=== PATIENT | male | born 2005 | race Caucasian/White ===

== ENCOUNTER 2023-03-15 20:30 | Emergency (ER) | payer MEDICAID ==
[2023-03-15 21:45] LABS: BASOPHILS # (AUTO) 0.1 10^3/uL (0.0-0.1); BASOPHILS % (AUTO) 0.4 %; EOSINOPHILS # (AUTO) 0.1 10^3/uL (0.0-0.7); EOSINOPHILS % (AUTO) 0.4 %; HCT - HEMATOCRIT 47.3 % (42.0-52.0); HGB - HEMOGLOBIN 15.7 g/dL (14.0-18.0); LYMPHOCYTES # (AUTO) 1.4 10^3/uL (1.5-3.5); LYMPHOCYTES % (AUTO) 9.8 %; MEAN CORPUSCULAR HEMOGLOBIN 29.8 pg (27.0-31.0); MEAN CORPUSCULAR HGB CONC 33.2 g/dL (32.0-36.0); MEAN CORPUSCULAR VOLUME 89.8 fL (80.0-94.0); MONOCYTES # (AUTO) 1.4 10^3/uL (0.0-1.0); MONOCYTES % (AUTO) 9.9 %; NEUTROPHILS # (AUTO) 11.3 10^3/uL (1.5-6.6); NEUTROPHILS % (AUTO) 79.1 %; PLT - PLATELET COUNT 265 10^3/uL (130-450); RED BLOOD COUNT 5.27 10^6/uL (4.70-6.10); RED CELL DISTRIBUTION WIDTH 12.9 % (12.0-15.0); WHITE BLOOD COUNT 14.2 x10^3/uL (4.8-10.8)
[2023-03-15 21:58] LABS: CALCIUM 8.8 mg/dL (8.5-10.3); CREATININE 0.9 mg/dL (0.6-1.2); POTASSIUM 3.5 mmol/L (3.5-5.0)
[2023-03-15] MEDS: iohexoL-300 100 ML VIAL IVP ONE (22:31)
[2023-03-15] MEDS: HYDROcod/ACETAM 5/325 MG TABLET PO STA (23:12)
[2023-03-15 23:15] VITALS: O2SAT 96
--- NOTE | 2023-03-16 00:25 | CT Report ---
PROCEDURE: IAC'S W INDICATIONS: R ear purulent drain 2 months, mastoid tend CONTRAST: Omni 300 100ml TECHNIQUE: Noncontrast 0.6 mm thick direct axial and coronal sections acquired through each temporal bone separa tely. After the administration of intravenous contrast, 0.6 mm thick direct axial and coronal sectio ns acquired through the affected temporal bone. For radiation dose reduction, the following was used : automated exposure control, adjustment of mA and/or kV according to patient size. COMPARISON: None. FINDINGS: Image quality: Excellent. RIGHT: External auditory canal: There is diffuse fluid opacification of the external auditory canal. Middle ear: There is diffuse abnormal fluid or soft tissue throughout the middle ear. A few small fo ci of gas are demonstrated within the external artery canal or middle ear. The ossicles appear preser steven. Inner ear: Inner ear is normally formed and appears unremarkable. Facial nerve appears normal throu ghout its course. Mastoids: There is diffuse fluid opacification of the right mastoid air cells. LEFT: External auditory canal: The left external auditory canal is clear. Middle ear: Middle ear structures, including the ossicles and tympanic membrane, appear normal. No abnormal fluid or soft tissues within the middle ear cavity. Inner ear: Inner ear is normally formed and appears unremarkable. Facial nerve appears normal throu ghout its course. Mastoids: Mastoid air cells are clear. MISCELLANEOUS: Visualized intracranial structures, including the cerebellopontine angle cisterns, ap pear normal. Visualized facial structures demonstrate relative symmetry of the lymph nodes. IMPRESSION: 1. Diffuse abnormal fluid density within the right external auditory canal and middle ear likely repr esent infection, given clinical history. No definite bony erosions. No erosion of the ossicles. 2. Fluid opacification of the right mastoid air cells compatible with mastoiditis. 3. Visualized soft tissues demonstrate no discrete soft tissue abscess. Reviewed by: Carl Humphrey MD on 03/16/2023 12:24 AM PDT Approved by: Carl Humphrey MD on 03/16/2023 12:24 AM PDT Station ID: [id number]
[2023-03-16 01:18] VITALS: BP 139/77
[2023-03-16] MEDS: IBUPROFEN 600 MG TABLET PO STA (01:22)
--- NOTE | 2023-03-16 01:47 | ED Physician Documentation ---
History of Present Illness - Stated complaint Stated Complaint: HEADACHE,EAR PX - Chief complaint Chief Complaint: General - History obtained from History obtained from: Patient, Family - Additonal information Additional information: The patient comes to the emergency department chief complaint of right ear drainage and headache. He states that the drainage actually started a couple of months ago after having a cerumen disimpaction on that side. He states that during the procedure, which was performed at a [place] urgent care facility, he noticed quite a bit of pain in the ear. It was shortly after that the drainage began, and the patient wondered if his tympanic membrane had been perforated. The patient states that after dealing with the drainage steadily worsening over a week, he went back in and was told that he had otitis externa. He was placed on eardrops for this but they did not clear up the drainage. Patient went back again and this time was placed on an oral antibiotic, though he does not know which one it was. He states he took the full course of that and finished it about 2 weeks ago and it did seem to help somewhat; however, he noticed recurrence of the drainage a little over a week ago and states that it has just gotten worse and worse since then. He now has pain that reaches up that side of his head from the ear. He has not noticed any dizziness or swelli ng. No bleeding. No fevers. He states his hearing is somewhat decreased about ear. He denies any immersion since being started on the antibiotic drops after the cerumen disimpaction. No other complaints at this time. PD PAST MEDICAL HISTORY - Present Medications Home Medications: Ambulatory Orders Medication Instructions Recorded Confirmed Ciprofloxacin HCl/Dexameth 7.5 ml OT BID 14 Days #210 ml 03/16/23 [Ciprodex Otic Suspension] Ciprofloxacin [Cipro] 500 mg PO Q12H 14 Days #56 tablet 03/16/23 HYDROcod/ACETAM 5/325 [Young 5/325] 1 - 2 tablet PO Q6H PRN #14 tablet 03/16/23 - Allergies Allergies/Adverse Reactions: Allergies Allergy/AdvReac Type Severity Reaction Status Date / Time No Known Drug Allergies Allergy Verified 03/15/23 20:43 PD ED PE NORMAL - Vitals Vital signs reviewed: Yes - General General: Alert and oriented X 3, No acute distress, Well developed/nourished - HEENT HEENT: Atraumatic, PERRL, EOMI, Moist mucous membranes, Other (Left tympanic membrane clear. Right ear demonstrates steady trickling output of purulent/serous fluid. Tympanic membrane somewhat difficult to visualize but appears to have a perforation. Mild tenderness over mastoid without edema or erythema. No crepitus. External ear normal) - Neck Neck: Supple, no meningeal sign, No bony TTP, No adenopathy - Respiratory Respiratory: No respiratory distress - Derm Derm: Normal color, Warm and dry, No rash - Extremities Extremities: No deformity - Neuro Neuro: Alert and oriented X 3 - Psych Psych: Normal mood, Normal affect Results - Vitals Vitals: Vital Signs - 24 hr 03/15/23 03/15/23 03/16/23 20:38 23:06 01:00 Temperature 37.2 C Heart Rate 94 91 70 Respiratory 16 16 16 Rate Blood Pressure 139/73 H 134/68 H 139/77 H O2 Saturation 97 96 96 03/16/23 01:43 Temperature 37.3 C Heart Rate Respiratory Rate Blood Pressure O2 Saturation Oxygen O2 Source Room air - Labs Labs: Microbiology 03/15/23 21:21 Body Fluid Culture - Preliminary Other - Drainage Laboratory Tests 03/15/23 03/15/23 21:41 21:41 WBC 14.2 H RBC 5.27 Hgb 15.7 Hct 47.3 MCV 89.8 MCH 29.8 MCHC 33.2 RDW 12.9 Plt Count 265 MPV 10.0 Neut # (Auto) 11.3 H Lymph # (Auto) 1.[address] [place] # (Auto) 1.4 H Eos # (Auto) 0.1 Baso # (Auto) 0.1 Absolute Nucleated RBC 0.00 Nucleated RBC % 0.0 Sodium 141 Potassium 3.5 Chloride 105 Carbon Dioxide 28 Anion Gap 8.0 BUN 13 Creatinine 0.9 Estimated GFR (MDRD) 109 Glucose 102 H Calcium 8.8 - Rads (name of study) CT IAC with contrast Relevant Findings:: Final report received, See rad report (Diffuse abnormal fluid density within right external and middle ear canals likely infection. No bony erosion. Fluid opacification of right mastoid air cells compatible with mastoiditis. No abscess.) PD Medical Decision Making - ED course Complexity details: reviewed results, re-evaluated patient, considered differential, d/w patient, d/w family ED course: I discussed with the patient that I was concerned about the possibility of chronic otitis that has spread into the patient's mastoid air cells, given the lack of response to antibiotics and the copious drainage patient has been having. Laboratory studies were obtained and demonstrated a white blood cell count of 14.2. BMP was unremarkable. The patient was afebrile in the emergency department. He was sent for CT of the internal auditory canals/mastoids with IV contrast, and this did show opacification of the mastoid air cells as well as nearly complete opacification of the external and internal auditory canals with fluid. I did speak with Dr. Huerta, the ENT specialist on-call at [facility], who did review the patient's CT images. He felt that the patient at this point, given the lack of bony erosion and is afebrile and overall well appearance, could be treated with oral Cipro and Ciprodex drops. He recommended a 2-week course of each. He stated he would like to have the patient seen in the ENT clinic there at [facility] Within the week to be sure the patient was responding appropriately and that there was no development of complications. The transfer center nurse Olive stated that she would put in a request for the clinic to call the patient, but did give me the number [phone], which is the otolaryngology clinic number that the patient should call if he has not heard from the clinic within the next 2 days. I have discussed all of this with the patient and his mother, and they are agreeable to the plan. The patient has responded well, comfort sales, to ibuprofen and a dose of Dilaudid. He has been given his first dose of ciprofloxacin here, and I have sent prescriptions for both the Cipro and the Ciprodex to the pharmacy of the patient's choice. We have discussed the need for immediate return if he develops fever, severe neck pain and stiffness, or strokelike symptoms. Departure - Departure Disposition: 01 Home, Self Care Clinical Impression: Mastoiditis of right side Chronic otitis media Qualifiers: Otitis media type: suppurative Laterality: right Suppurative otitis media location: unspecified location Qualified Code(s): H66.3X1 - Other chronic suppurative otitis media, right ear Condition: Stable Instructions: Mastoiditis Ch Follow-Up: Hollis Hurst MD [Physician No Access] - Tello Smith MD [Physician No Access] - Prescriptions: Ciprofloxacin [Cipro] 500 mg PO Q12H 14 Days #56 tablet Ciprofloxacin HCl/Dexameth [Ciprodex Otic Suspension] 7.5 ml OT BID 14 Days #210 ml HYDROcod/ACETAM 5/325 [Young 5/325] 1 - 2 tablet PO Q6H PRN #14 tablet PRN Reason: Pain Comments: You have been found to have a chronic ear infection which has spread into the mastoid air cells in the part of your skull that surrounds the ear canal. This has caused fluid buildup and is the source of the constant drainage you have been experiencing. Fortunately, there is no evidence of breakdown of the bony structures of your ear, which can lead to much more serious complications. However, it is very important that the infection be treated appropriately and completely with antibiotics to prevent these more serious complications from arising. Your case has been discussed with Dr. Huerta, the on-call ENT specialist at [facility] in [place]. He has reviewed your CT images and at this point, feels that you can go on a course of oral antibiotics, combined with the antibiotic drops in your ear. He would like you to be on a longer course to be sure you get adequate treatment and he would also like to see you in follow-up in their clinic within the week. A request has been put in for the clinic to call you within the next 1 to 2 days, but if by chance you do not hear from them after 2 days, you should call them at [phone] to check in and make sure that you are seen in the desired timeframe. You have been given the first dose of oral antibiotics tonight, and the prescription for the remainder of both the oral antibiotics and the antibiotic drops has been electronically transmitted to the [facility] in [place]. Please pick this prescription up in the morning. You may twist a tissue and insert it lightly into your ear to help mop up some of the fluid, but it is best to avoid using anything harder like a Q-tip. You should also avoid immersing your head in water until you have been cleared by ENT to do so. If you develop severe pain, fevers, severe neck pain or stiffness, or any stroke-like symptoms, please return to the emergency department immediately. Otherwise, please take all of your antibiotics as directed and follow-up with ENT as planned. Forms: PCP List
[2023-03-16] MEDS: CIPROFLOXACIN 250 MG TABLET PO STA (01:57)
== END 2023-03-16 02:03 | disposition home or self-care (01) ==
LOC: ED 20:30
DX: H70.91 Unspecified mastoiditis, right ear (principal); H66.3X1 Other chronic suppurative otitis media, right ear
CPT/HCPCS: 36415; 80048; 85025; 87070; 87077; 87205; 99284